=== PATIENT | female | born 1990 | race Caucasian/White ===

== ENCOUNTER 2018-03-22 11:54 | Emergency (ER) | payer OTHER ==
[2018-03-22 12:07] VITALS: O2SAT 98
[2018-03-22] MEDS ORDERED: Sodium Chloride 0.9% 1,000 ML IV STA ×2 (12:10→13:32)
[2018-03-22 12:35] LABS: BASO % 0.7 % (0.0-2.0); EOS % 0.4 % (0.0-4.0); HEMOGLOBIN 15.1 g/dL (12.0-16.0); LYMPH # 1.7 K/uL (1.0-4.3); LYMPH % 52.8 % (20.0-40.0); MEAN CELL VOLUME 86.1 fl (81.0-99.0); MEAN CORPUSCULAR HEMOGLOBIN 29.3 pg (27.0-31.0); MEAN CORPUSCULAR HGB CONC 34.1 g/dL (33.0-37.0); MEAN PLATELET VOLUME 7.3 fl (7.2-11.7); MONO # 0.5 K/uL (0.0-0.8); MONO % 15.4 % (0.0-10.0); NEUT % 30.7 % (50.0-75.0); NRBC % 0.3 % (0.0-0.0); RBC 5.14 Mil/uL (3.80-5.20); RED CELL DISTRIBUTION WIDTH 13.2 % (11.5-14.5); WHITE BLOOD COUNT 3.2 K/uL (4.8-10.8)
[2018-03-22 12:50] LABS: ALB/GLOB RATIO 1.3 (1.0-2.1); ALBUMIN 4.6 g/dL (3.5-5.0); ALT/SGPT 63 U/L (9-52); AST/SGOT 106 U/L (14-36); BLOOD UREA NITROGEN 14 mg/dl (7-17); CALCIUM 10.1 mg/dL (8.4-10.2); GFR AFRICAN-AMERICAN > 60; GFR NON-AFRICAN AMERICAN > 60
--- NOTE | 2018-03-22 13:56 | ED PDOC ---
Syncope/Near Syncope/Dizziness Time Seen by Provider: 03/22/18 12:09 Chief Complaint (Nursing): Syncope Chief Complaint (Provider): Syncopal Episode History Per: Patient History/Exam Limitations: no limitations Number Of Syncopal Episodes: 1 Activity At Onset Of Symptoms: Walking Associated Symptoms Preceding Syncopal Episode: Lightheadedness Seizure Or Post-ictal Symptoms: None Possible Causative Factor(s): Other (New Supplement) Severity: None Additional Complaint(s): 27 year old female presents to the emergency department with her substation electrician after having a witnessed syncopal episode while exercising at the gym. Patient reports that she recently started taking a new supplement (hydroxycut) which caused her to feel dizzy and develop a headache. She states because of this she discontinued taking the supplement a few days ago. Patient reports that this morning she did not eat breakfast but went to the gym and spent 15 minutes in the sauna and then started aerobic workouts. She states that she felt dizzy throughout her workout and while travelling from one activity to another she had a witnessed syncopal episode that lasted for about 20 seconds, followed by large non bloody vomitus. Denies preceeding chest pain, difficulty breathing, headache, abdominal pain, feer, prior history of cardiac problems, neurologic issues, tongue biting, loss of continence. Her substation electrician who witnessed the events denies convulsive activity and states that there was no post ictal period. Patient returned to baseline immediately. Past Medical History Reviewed: Historical Data, Nursing Documentation, Vital Signs Vital Signs: Last Vital Signs Temp 97.7 F 03/22/18 12:03 Pulse 84 03/22/18 12:03 Resp 20 03/22/18 12:03 BP 129/82 03/22/18 12:03 Pulse Ox 98 03/22/18 12:03 - Medical History PMH: No Chronic Diseases - Surgical History Surgical History: No Surg Hx - Family History Family History: States: Unknown Family Hx - Social History Current smoker - smoking cessation education provided: No Alcohol: None Drugs: Denies - Allergies Allergies/Adverse Reactions: Allergies Allergy/AdvReac Type Severity Reaction Status Date / Time No Known Allergies Allergy Verified 03/22/18 12:03 Review of Systems ROS Statement: Except As Marked, All Systems Reviewed And Found Negative Constitutional: Positive for: Weakness. Negative for: Fever Cardiovascular: Negative for: Chest Pain Respiratory: Negative for: Shortness of Breath Gastrointestinal: Positive for: Nausea. Negative for: Abdominal Pain Neurological: Positive for: Dizziness Physical Exam - Reviewed Nursing Documentation Reviewed: Yes Vital Signs Reviewed: Yes - Physical Exam Appears: Positive for: Non-toxic, No Acute Distress (Physically fit) Head Exam: Positive for: ATRAUMATIC, NORMAL INSPECTION, NORMOCEPHALIC Skin: Positive for: Normal Color, Warm, Dry. Negative for: Rash Eye Exam: Positive for: Normal appearance, EOMI, PERRL. Negative for: Nystagmus ENT: Positive for: Normal ENT Inspection. Negative for: Nasal Congestion, Tonsillar Exudate Neck: Positive for: Normal, Painless ROM, Supple Cardiovascular/Chest: Positive for: Regular Rate, Rhythm, Chest Non Tender. Negative for: Murmur, Tachycardia Respiratory: Positive for: Normal Breath Sounds. Negative for: Rales, Rhonchi, Stridor, Wheezing, Respiratory Distress Gastrointestinal/Abdominal: Positive for: Normal Exam, Bowel Sounds, Soft. Negative for: Tenderness, Mass, Guarding, Rebound Back: Positive for: Normal Inspection. Negative for: L CVA Tenderness, R CVA Tenderness, Muscle Spasm Extremity: Positive for: Normal ROM. Negative for: Tenderness, Deformity, Swelling Neurologic/Psych: Positive for: Alert, painter touch up II-XII (all intact), Oriented, Cerebellar Tests (normal), Gait. Negative for: Motor/Sensory Deficits, Aphasia , Facial Droop - Laboratory Results Result Diagrams: 03/22/18 12:25 03/22/18 12:25 - ECG O2 Sat by Pulse Oximetry: 98 (RA) Pulse Ox Interpretation: Normal Medical Decision Making Medical Decision Makin Initial Impression 27 year old female presenting with syncope Patient will be worked up for syncope. Initial Plan; * EKG * CMP * Total Creatinine Phosphokinase * TSH * Troponin * Upreg * Udip * CBC * NS 1000 ml IV 1000 ml/hr * Reevaluation Blood work revealed mildly elevated total CK level. Mild leukopenia unclear significance. Landscaping Manager normal. UA no blood. TSH neg. I had long discussion w patient about potential for early rhabdo. Patient advised to cease physical exertion for seven days, avoid alcohol , discontinue supplements, increase oral hydration and to return to ED if muscle pain returns or develops dark urine. She understood risks, offered further hospital observation but states she has to leave ED for an appointment at 3pm in [facility]. Received 2L IVF, denies symptoms on discharge. BREANN KNIGHT, thank you for letting us take care of you today. Your provider was Andrea Cooper III, DO and you were treated for NEAR SYNCOPE. The emergency medical care you received today was directed at your acute symptoms. If you were prescribed any medication, please fill it and take as directed. It may take several days for your symptoms to resolve. Return to the Emergency Department if your symptoms worsen, do not improve, or if you have any other problems. Please contact your doctor or call one of the physicians/clinics you have been referred to that are listed on the Patient Visit Information form that is included in your discharge packet. Bring any paperwork you were given at discharge with you along with any medications you are taking to your follow up visit. Our treatment cannot replace ongoing medical care by a primary care provider outside of the emergency department. Thank you for allowing the [facility] team to be part of your care today. If you had an X-Ray or CT scan: A Radiologist will review the ED reading if any change in treatment is needed we will contact you. If you had a blood, urine, or wound culture: It will take several days for the results, if any change in treatment is needed we will contact you. I Documented by Lourdes Sotelo acting as a scribe for Andrea Cooper III, DO. All medical record entries made by the Scribe were at my direction and personally dictated by me. I have reviewed the chart and agree that the record accurately reflects my personal performance of the history, physical exam, medical decision making, and the department course for this patient. I have also personally directed, reviewed, and agree with the discharge instructions and disposition. Disposition - Clinical Impression Clinical Impression: Rhabdomyolysis, Syncope, Dehydration - Patient ED Disposition Is Patient to be Admitted: No Counseled Patient/Family Regarding: Studies Performed, Diagnosis, Need For Followup - Disposition Referrals: [facility] [Outside] Disposition: Routine/Home Disposition Time: 13:50 Condition: STABLE Additional Instructions: DRINK PLENTY OF FLUIDS, AVOID ALCOHOL, CAFFEINE AND SUPPLEMENTS FOR AT LEAST 7 DAYS. AVOID EXERCISE OR HEAVY EXERTION FOR AT LEAST 7 DAYS. RETURN TO ER FOR ANY WORSE OR NEW SYMPTOMS, MUSCLE PAIN, DARK URINE, OR DIZZINESS. RECOMMEND ECHOCARDIOGRAM OF YOUR HEART BEFORE RETURNING TO EXERCISE ROUTINE. CALL [facility] FOR REFERRAL TO PMD OR CARE ATTENDANT. Instructions: Rhabdomyolysis, Syncope (Fainting), Dehydration, Adult (DC) Forms: [facility] (Ghanaian) - POA Present On Arrival: None
[2018-03-22 14:30] VITALS: BP 122/78; PULSE 82; RESP 16; TEMP 97.8
--- NOTE | 2018-03-22 15:05 | CARD ---
APPROVED REPORT Date of service: 03/22/2018 EKG Measurement Heart [id number] 140P-16 [id number] <Conclusion> Normal sinus rhythm Normal ECG
== END 2018-03-22 14:25 | disposition home or self-care (01) ==
LOC: EDBD 11:54 → H.ER 11:54
DX: R55 Syncope and collapse (principal); M62.82 Rhabdomyolysis; E86.0 Dehydration; D72.819 Decreased white blood cell count, unspecified
CPT/HCPCS: 80053; 81025; 82550; 84443; 84484; 85025; 93005; 96360; 96361; 99285; J7030

== ENCOUNTER 2018-03-26 17:50 | Emergency (ER) | payer SELFPAY ==
[2018-03-26 18:10] VITALS: TEMP 98
[2018-03-26] MEDS ORDERED: Tmp-Smz 800 mg-160 mg DS Tab PO ONE (18:23)
[2018-03-26] MEDS ORDERED: Sodium Chloride 0.9% 1,000 ML IV SCH (18:30)
[2018-03-26] MEDS ORDERED: Tmp-Smz 800 mg-160 mg DS Tab ONE (18:31)
[2018-03-26 18:45] LABS: SQUAMOUS EPITHIAL 2 /hpf (0-5); URINE BILIRUBIN NEGATIVE (NEGATIVE); URINE BLOOD NEGATIVE (NEGATIVE); URINE CLARITY SLIGHTY-CLOUDY (Clear); URINE COLOR YELLOW (YELLOW); URINE GLUCOSE (UA) NEG (Normal); URINE LEUKOCYTE ESTERASE NEG Leu/uL (Negative); URINE PROTEIN NEGATIVE (NEGATIVE); URINE UROBILINOGEN 0.2-1.0 mg/dL (0.2-1.0)
[2018-03-26 18:48] LABS: BASO % 0.6 % (0.0-2.0); EOS # 0.1 K/uL (0.0-0.7); EOS % 1.4 % (0.0-4.0); HEMOGLOBIN 14.9 g/dL (12.0-16.0); LYMPH # 1.9 K/uL (1.0-4.3); LYMPH % 32.8 % (20.0-40.0); MEAN CELL VOLUME 86.8 fl (81.0-99.0); MEAN CORPUSCULAR HEMOGLOBIN 28.8 pg (27.0-31.0); MEAN CORPUSCULAR HGB CONC 33.2 g/dL (33.0-37.0); MEAN PLATELET VOLUME 7.1 fl (7.2-11.7); MONO # 0.5 K/uL (0.0-0.8); MONO % 9.6 % (0.0-10.0); NEUT # 3.2 K/uL (1.8-7.0); NEUT % 55.6 % (50.0-75.0); NRBC % 0.1 % (0.0-0.0); RBC 5.17 Mil/uL (3.80-5.20); RED CELL DISTRIBUTION WIDTH 13.2 % (11.5-14.5); WHITE BLOOD COUNT 5.7 K/uL (4.8-10.8)
--- NOTE | 2018-03-26 18:57 | ED PDOC ---
Syncope/Near Syncope/Dizziness <Adelita Duke - Last Filed: 03/26/18 20:07> Chief Complaint (Provider): Dizziness/Lightheaded History Per: Patient History/Exam Limitations: no limitations Onset/Duration Of Symptoms: Days Current Symptoms Are (Timing): Still Present Additional Complaint(s): Celena Knight is a 27 year old female who arrived to the ED with another episode of lightheadedness and dizziness with a near syncopal presentation since yesterday. Patient states that she was here on Wednesday (4 days ago) and was diagnosed with dehydration and elevate CK levels due to extrenuous exercise. Patient reports that she stopped working out and has stopped her herbal supplement (hydroxycut) since then. She states that she has been drinking plenty of fluids but states she still does not feel like herself along with continued generalized malaise, intermittent shortness of breath and heaviness in the chest associated with lightheadedness. Patient also reports that she noted a rash to the right knee and states she suspects a wasp bite but is unsure x 1 day. She notes that the rash has gotten bigger today and is accompanied with achy and swollen joints and itchiness. --pt denied LOC --pt denied nausea/vomiting/fever/chills/sweats --pt denied chest pain/palpitations --pt denied fall/trauma/sick contact, no travel --pt denied abdominal pain/urinary symptoms --pt is here for further eval --pt's without other complaints PCP: none Patient is from out of state from [place] and is here visiting. States she was adopted so doesnt know family history well. <Stewart Arevalo - Last Filed: 03/27/18 11:54> Time Seen by Provider: 03/26/18 18:15 Chief Complaint (Nursing): Dizziness/Lightheaded Past Medical History Vital Signs: Last Vital Signs Temp 98.0 F 03/26/18 18:06 Pulse 65 03/26/18 18:06 Resp 18 03/26/18 18:06 BP 130/81 03/26/18 18:06 Pulse Ox 99 03/26/18 19:21 <Adelita Duke - Last Filed: 03/26/18 20:07> Reviewed: Historical Data, Nursing Documentation, Vital Signs Vital Signs: Last Vital Signs Temp 98.0 F 03/26/18 18:06 Pulse 65 03/26/18 18:06 Resp 18 03/26/18 18:06 BP 130/81 03/26/18 18:06 Pulse Ox 99 03/26/18 18:06 - Medical History PMH: No Chronic Diseases - Surgical History Surgical History: No Surg Hx - Family History Family History: States: Unknown Family Hx - Social History Current smoker - smoking cessation education provided: No Alcohol: None Drugs: Denies <Stewart Arevalo - Last Filed: 03/27/18 11:54> - Home Medications Home Medications: Ambulatory Orders Medication Instructions Recorded Cephalexin [Keflex] 500 mg PO BID #14 capsule 03/26/18 Sulfamethoxazole/Trimethoprim 1 tab PO BID #14 tab 03/26/18 [Bactrim DS 800 mg-160 mg] - Allergies Allergies/Adverse Reactions: Allergies Allergy/AdvReac Type Severity Reaction Status Date / Time ketchup Allergy SHORTNESS Verified 03/26/18 18:05 OF BREATH Review of Systems ROS Statement: Except As Marked, All Systems Reviewed And Found Negative Constitutional: Positive for: Weakness, Malaise. Negative for: Fever, Chills, Sweats Cardiovascular: Negative for: Chest Pain, Palpitations Respiratory: Positive for: Shortness of Breath Gastrointestinal: Negative for: Nausea, Vomiting, Abdominal Pain Genitourinary Female: Negative for: Dysuria, Frequency, Incontinence Skin: Positive for: Rash (right knee) Neurological: Positive for: Weakness, Dizziness, Other (lightheadedness). Negative for: Altered Mental Status <Stewart Arevalo - Last Filed: 03/27/18 11:54> Physical Exam - Reviewed Nursing Documentation Reviewed: Yes Vital Signs Reviewed: Yes (WNL) - Physical Exam Appears: Positive for: Well (alert/awake, GCS = 15, oriented x 3, NAD, mildly uncomfortable, resting in bed, cooperative, interactive), Non-toxic, No Acute Distress, Uncomfortable Head Exam: Positive for: ATRAUMATIC, NORMAL INSPECTION, NORMOCEPHALIC Skin: Positive for: Normal Color (noted right lateral/anterior knee large skin erythema [id number], + slightly tender on exam over the skin rash; NON-indurated, + warm, no open sores/lesions noted; cap refill < 1sec, no ulcerations, no petechiae), Warm. Negative for: Rash Eye Exam: Positive for: Normal appearance, EOMI, PERRL, Other (visual field intact b/l, no photophobia, sclera anicteric) ENT: Positive for: Normal ENT Inspection Neck: Positive for: Normal (intact ROM, no midline tenderness, no nuchal rigidity, no meningeal signs), Painless ROM, Supple, Trachea Midline Cardiovascular/Chest: Positive for: Regular Rate, Rhythm, Chest Non Tender, Other (+S1, +S2, no m/r/r). Negative for: Murmur Respiratory: Positive for: Normal Breath Sounds, Other (CTA b/l, no w/r/r; no tachypenia, no accessory muscle use noted). Negative for: Wheezing, Respiratory Distress Gastrointestinal/Abdominal: Positive for: Normal Exam, Bowel Sounds, Soft, Other (well nourished female, no focal tenderness, no ferrell's sign, no mcburney 's point tenderness). Negative for: Tenderness Back: Positive for: Normal Inspection. Negative for: L CVA Tenderness, R CVA Tenderness, Vertebral Tenderness Extremity: Positive for: Normal ROM, Other (right knee: Right knee: interior superior lateral aspect: large irregularly shaped rash, not indurated but slightly tender to palpation: 5x6 cm area and no open wound or sores noted. No vesicles pustules or bullae, no nikolsky sign noted, cap refill less than 1 second no petechiae no pallor no lesions noted). Negative for: Calf Tenderness , Deformity Neurologic/Psych: Positive for: Alert, veneer press operator II-XII, Oriented. Negative for: Motor/Sensory Deficits <Stewart Arevalo - Last Filed: 03/27/18 11:54> - Laboratory Results Result Diagrams: 03/26/18 18:44 03/26/18 18:44 - Progress Re-evaluation Time: 20:08 Condition: Re-examined, Improved <Adelita Duke - Last Filed: 03/26/18 20:07> - Laboratory Results Result Diagrams: 03/26/18 18:44 03/26/18 18:44 - ECG ECG: Positive for: Interpreted By Me, Viewed By Me Interpretation Of Abn EKG: NSR at 75 bpm, normal axis, no ectopy, inverted T in leads V1, no st changes, BORDELRINE EKG; unchanged compare with old ekg 02/2018 O2 Sat by Pulse Oximetry: 99 (RA) Pulse Ox Interpretation: Normal - Radiology X-Ray: Interpreted by Me, Viewed By Me - Progress ED Course And Treament: 7:10pm - pt is currently awaiting her lab results and symptoms improvement pt is otherwise comfortable Pt is not in any distress pt is endorsed to overnight ED attending, Dr Duke, awaiting labs, pt can be dispositioned accordingly Date of service: 03/26/2018 HISTORY: weakness, near syncope COMPARISON: No prior. TECHNIQUE: Chest PA and lateral FINDINGS: LUNGS: No active pulmonary disease. PLEURA: No significant pleural effusion identified. No pneumothorax apparent. CARDIOVASCULAR: Normal. OSSEOUS STRUCTURES: No significant abnormalities. VISUALIZED UPPER ABDOMEN: Normal. OTHER FINDINGS: None. IMPRESSION: No active disease. Date of service: 03/26/2018 PROCEDURE: Right Knee Radiographs. HISTORY: swelling, bite by something, tender/itchy COMPARISON: None. FINDINGS: BONES: No acute fracture. JOINTS: Unremarkable. JOINT EFFUSION: None. OTHER FINDINGS: None. IMPRESSION: No demonstrated fracture or dislocation. - Critical Care Notes:: Orders: --VBG Shock Panel --EKG --CMP --Creatine Phosphate --Thyroid Stimulating Hormone --ED Urine --CBC --Erythrocyte Sediment --Chest X-Ray --X-Ray Right Knee --Bactrim DS Tab --IV Fluids --Urinalysis Time: 19:00 Patient signed out to Dr. Duke pending labs, reevaluation and disposition. <Stewart Arevalo - Last Filed: 03/27/18 11:54> Medical Decision Making Medical Decision Making: A/P: I have considered all the differential diagnosis regarding pt's chief medical complaints/clinical findings, including but are not limited to: rule out dehydration, electrolyte abnormality, heat exposure, monitor patient's CK level for potential undiagnosed rahbdo unlikely cardiac arrhythmia unlikely PE Plan: - supportive care - observe Scribe Attestation: Documented by, Stella Baxter acting as a scribe for Stewart Arevalo MD. Provider Scribe Attestation: All medical record entries made by the Scribe were at my direction and personally dictated by me. I have reviewed the chart and agree that the record accurately reflects my personal performance of the history, physical exam, medical decision making, and the department course for this patient. I have also personally directed, reviewed, and agree with the discharge instructions and disposition. <Stewart Arevalo - Last Filed: 03/27/18 11:54> Disposition - Patient ED Disposition Is Patient to be Admitted: No Doctor Will See Patient In The: Office Counseled Patient/Family Regarding: Studies Performed, Diagnosis, Need For Followup - Disposition Disposition: Routine/Home Disposition Time: 20:08 <Adelita Duke - Last Filed: 03/26/18 20:07> - Disposition Patient Signed Over To: Adelita Duke <Stewart Arevalo - Last Filed: 03/27/18 11:54> - Clinical Impression Clinical Impression: Dizziness, Syncope, Cellulitis - Disposition Condition: STABLE Additional Instructions: Take your medications as instructed. Follow up with your PCP in 2-3 days. Return for worsening. CELENA KNIGHT, thank you for letting us take care of you today. Your provider was Adelita Duke MD and you were treated for POSS ALLERGIC REACTION/ DIZZINESS. The emergency medical care you received today was directed at your acute symptoms. If you were prescribed any medication, please fill it and take as directed. It may take several days for your symptoms to resolve. Return to the Emergency Department if your symptoms worsen, do not improve, or if you have any other problems. Please contact your doctor or call one of the physicians/clinics you have been referred to that are listed on the Patient Visit Information form that is included in your discharge packet. Bring any paperwork you were given at discharge with you along with any medications you are taking to your follow up visit. Our treatment cannot replace ongoing medical care by a primary care provider outside of the emergency department. Thank you for allowing the [facility] [employer] team to be part of your care today. Prescriptions: Cephalexin [Keflex] 500 mg PO BID #14 capsule Sulfamethoxazole/Trimethoprim [Bactrim DS 800 mg-160 mg] 1 tab PO BID #14 tab Instructions: Syncope (Fainting), Cellulitis (Skin Infection), Adult (DC) Print Language: CZECH
[2018-03-26 19:00] LABS: ALB/GLOB RATIO 1.3 (1.0-2.1); ALBUMIN 4.4 g/dL (3.5-5.0); ALT/SGPT 38 U/L (9-52); AST/SGOT 27 U/L (14-36); BLOOD UREA NITROGEN 14 mg/dl (7-17); GFR NON-AFRICAN AMERICAN > 60
[2018-03-26 19:02] LABS: VENOUS BLOOD GAS PCO2 57 mmHg (40-60); VENOUS BLOOD GAS PO2 20 mm/Hg (30-55); VENOUS BLOOD PH 7.32 (7.32-7.43)
--- NOTE | 2018-03-26 19:10 | ED PDOC ---
- Laboratory Results Result Diagrams: 03/26/18 18:44 03/26/18 18:44 - ECG O2 Sat by Pulse Oximetry: 99 (RA) Pulse Ox Interpretation: Normal - Progress Re-evaluation Time: 20:40 Condition: Re-examined, Improved Medical Decision Making Medical Decision Making: Time: 19:00 Patient signed out to me by Dr. Arevalo pending labs, x-rays and disposition. 19:16 Labs reviewed with no clinically significant abnormalities. X-Ray of right knee showed no acute findings. Chest X-ray showed no acute findings. Scribe Attestation: Documented by, Stella Baxter acting as a scribe for Adelita Duke MD. Provider Scribe Attestation: All medical record entries made by the Scribe were at my direction and personally dictated by me. I have reviewed the chart and agree that the record accurately reflects my personal performance of the history, physical exam, medical decision making, and the department course for this patient. I have also personally directed, reviewed, and agree with the discharge instructions and disposition. Disposition Doctor Will See Patient In The: Office Counseled Patient/Family Regarding: Studies Performed, Diagnosis, Need For Followup - Clinical Impression Clinical Impression: Dizziness, Syncope, Cellulitis - POA Present On Arrival: None - Disposition Disposition: Routine/Home Disposition Time: 20:00 Condition: GOOD Additional Instructions: Take your medications as instructed. Follow up with your PCP in 2-3 days. Return for worsening. BREANN KNIGHT, thank you for letting us take care of you today. Your provider was Adelita Duke MD and you were treated for POSS ALLERGIC REACTION/ DIZZINESS. The emergency medical care you received today was directed at your acute symptoms. If you were prescribed any medication, please fill it and take as directed. It may take several days for your symptoms to resolve. Return to the Emergency Department if your symptoms worsen, do not improve, or if you have any other problems. Please contact your doctor or call one of the physicians/clinics you have been referred to that are listed on the Patient Visit Information form that is included in your discharge packet. Bring any paperwork you were given at discharge with you along with any medications you are taking to your follow up visit. Our treatment cannot replace ongoing medical care by a primary care provider outside of the emergency department. Thank you for allowing the [facility] team to be part of your care today. Prescriptions: Cephalexin [Keflex] 500 mg PO BID #14 capsule Sulfamethoxazole/Trimethoprim [Bactrim DS 800 mg-160 mg] 1 tab PO BID #14 tab Instructions: Syncope (Fainting), Cellulitis (Skin Infection), Adult (DC)
[2018-03-26 20:48] VITALS: BP 121/71; PULSE 87; RESP 16
--- NOTE | 2018-03-27 08:29 | RAD ---
Date of service: 03/26/2018 HISTORY: weakness, near syncope COMPARISON: No prior. TECHNIQUE: Chest PA and lateral FINDINGS: LUNGS: No active pulmonary disease. PLEURA: No significant pleural effusion identified. No pneumothorax apparent. CARDIOVASCULAR: Normal. OSSEOUS STRUCTURES: No significant abnormalities. VISUALIZED UPPER ABDOMEN: Normal. OTHER FINDINGS: None. IMPRESSION: No active disease.
--- NOTE | 2018-03-27 08:30 | RAD ---
Date of service: 03/26/2018 PROCEDURE: Right Knee Radiographs. HISTORY: swelling, bite by something, tender/itchy COMPARISON: None. FINDINGS: BONES: No acute fracture. JOINTS: Unremarkable. JOINT EFFUSION: None. OTHER FINDINGS: None. IMPRESSION: No demonstrated fracture or dislocation.
[2018-03-27 11:18] VITALS: O2SAT 99
--- NOTE | 2018-03-28 17:54 | CARD ---
APPROVED REPORT Date of service: 03/26/2018 EKG Measurement Heart [id number] <Conclusion> Normal sinus rhythm Possible Left atrial enlargement Borderline ECG
== END 2018-03-26 20:50 | disposition home or self-care (01) ==
LOC: H.ER 17:50
DX: L03.115 Cellulitis of right lower limb (principal); R42 Dizziness and giddiness; R55 Syncope and collapse
CPT/HCPCS: 71046; 73562; 80053; 81003; 81025; 82550; 82803; 84443; 85025; 85651; 93005; 99285; J7030